=== PATIENT | male | born 1970 | race Caucasian/White ===

== ENCOUNTER 2017-06-06 06:59 | Emergency (ER) | payer OTHER ==
[2017-06-06 07:08] VITALS: RESP 18; TEMP 98.1
[2017-06-06] MEDS ORDERED: KETOROLAC 60 MG/2 ML VIAL IVP STA (07:36)
[2017-06-06] MEDS ORDERED: DIAZEPAM 5 MG/ML 2 ML SYRINGE IVP STA (07:36)
--- NOTE | 2017-06-06 07:40 | ED ---
General Adult HPI - General Chief complaint: Back Pain/Injury Stated complaint: Back Pain Time Seen by Provider: 06/06/17 07:05 Source: family, RN notes reviewed Mode of arrival: ambulatory - History of Present Illness Initial comments: This is a 46-year-old male who presents emergency Department complaining of right lower back pain. Patient states it started on has gotten progressively worse. 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 Patient states the pain radiates to the anterior thigh a little bit not that much. Patient denies any numbness or weakness. Patient denies any incontinence of urine or retention. Patient denies any injury to the area recently patient states he has had pain in that area before. Patient denies being on any pain medications. Patient is from out of town and has no doctor in town - Related Data Home Medications Medication Instructions Recorded Confirmed Lisinopril [Zestril] 10 mg PO HS 06/06/17 06/06/17 Lisinopril [Zestril] 20 mg PO [id number] 06/06/17 06/06/17 Previous Rx's Medication Instructions Recorded Cyclobenzaprine [Flexeril] 10 mg PO TID #20 tab 06/06/17 Ibuprofen [Motrin] 600 mg PO Q6HR PRN #20 tab 06/06/17 Allergies Allergy/AdvReac Type Severity Reaction Status Date / Time No Known Allergies Allergy Verified 06/06/17 07:08 Review of Systems ROS Statement: Those systems with pertinent positive or pertinent negative responses have been documented in the HPI. ROS Other: All systems not noted in ROS Statement are negative. Past Medical History Past Medical History: Diabetes Mellitus, Hypertension History of Any Multi-Drug Resistant Organisms: None Reported Past Surgical History: No Surgical Hx Reported Past Psychological History: No Psychological Hx Reported Smoking Status: Current every day smoker Past Alcohol Use History: Occasional Past Drug Use History: None Reported General Exam - General Exam Comments Initial Comments: GENERAL Patient is well-developed and well-nourished. Patient is in mild distress. EYES Patient's pupils are equal and round. Extraocular motion is intact SKIN Unremarkable NEURO The patient is alert and oriented 3 PYSCH Patient has normal interpersonal interactions. MUSCULOSKELETAL Patient has limited range of motion of the right leg secondary to pain. Patient has a positive straight leg test on the right at about 30. Patient has no numbness on the legs no weakness of the legs. Patient has no perineal numbness. Course Vital Signs 06/06/17 07:05 Temperature 98.1 F Pulse Rate 79 Respiratory 18 Rate Blood Pressure 165/98 O2 Sat by Pulse 99 Oximetry Medical Decision Making - Medical Decision Making Patient told me he had no pain medications and was not in any other medications fosinopril he also told triage that. When I did a background check on his medications he has been given hydrocodone on May 19 May 05 of April 21. Disposition Clinical Impression: Strain of lumbar region Disposition: HOME SELF-CARE Condition: Good Instructions: Acute Low Back Pain (ED) Prescriptions: Cyclobenzaprine [Flexeril] 10 mg PO TID #20 tab Ibuprofen [Motrin] 600 mg PO Q6HR PRN #20 tab PRN Reason: For pain Referrals: Nonstaff,Physician [Primary Care Provider] - 1-2 days Time of Disposition: 08:19
[2017-06-06 08:47] VITALS: BP 140/87; PULSE 78
== END 2017-06-06 08:47 | disposition home or self-care (01) ==
LOC: EC 06:59
DX: S39.012A Strain of muscle, fascia and tendon of lower back, initial encounter (principal); I10 Essential (primary) hypertension; F17.200 Nicotine dependence, unspecified, uncomplicated; Z79.899 Other long term (current) drug therapy; X50.1XXA Overexertion from prolonged static or awkward postures, initial encounter; Y93.89 Activity, other specified
CPT/HCPCS: 99283; 96374; 96375; 80306; J3360; J1885